=== PATIENT | female | born 1990 | race African-American/Black ===

== ENCOUNTER 2016-10-10 07:57 | Emergency (ER) | payer MEDICAID ==
[2016-10-10] MEDS ORDERED: SODIUM CHLORIDE 0.9% 100 ML IV ONE (10:54)
[2016-10-10] MEDS ORDERED: CEFTRIAXONE 1 GM VIAL ONE (10:54)
== END 2016-10-10 11:21 | disposition home or self-care (01) ==
LOC: ER 07:57
DX: O23.11 Infections of bladder in pregnancy, first trimester (principal); Z3A.00 Weeks of gestation of pregnancy not specified; Z87.891 Personal history of nicotine dependence
CPT/HCPCS: 36415; 76817; 80053; 81001; 83690; 84702; 84703; 85025; 87088; 87491; 87591; 87800; 96365